=== PATIENT | female | born 2000 | race Caucasian/White ===

== ENCOUNTER 2018-11-01 11:10 | Emergency (ER) | payer BC ==
[~2018-11-01] VITALS: Ht 172.7 cm; Wt 59.0 kg
[2018-11-01] MEDS ORDERED: NKM (11:17)
[2018-11-01 11:20] VITALS: BP 100/65
--- NOTE | 2018-11-01 11:20 | NUR ---
ED Nurse Note: patient came in from home c/o sorethoat, headache and feeling "sick." x 3 days. reports pain 8/10 ambulatory, a/o x4 lives with her roommates. per patient, she is allergic to PCN reaction is rash and nausea
--- NOTE | 2018-11-01 12:24 | NUR ---
AMA: SEE AMA FORM.
--- NOTE | 2018-11-01 12:24 | NUR ---
ED Nurse Note: patient left department Dr. Corine CRUZ made aware.
[2018-11-01 17:40] VITALS: BP 100/65
--- NOTE | 2019-01-10 08:40 | Emergency Room Report ---
History of Present Illness General Chief Complaint: Sore Throat Source: Patient Present Illness HPI The patient states she has had sore throat, bodyaches and headache for the past 3 days. She states that her boyfriend has similar symptoms. She did get the influenza vaccine this season. She denies neck pain or stiffness. She denies blurry vision. She denies chest pain or shortness of breath. She has been fatigued. She has no other complaints. Allergies: Coded Allergies: PENICILLINS (Verified Allergy, Unknown, 11/01/18) Patient History Past Medical History: none, see triage record Social History: Reports: smoking; Denies: alcohol use, drug use Now: No Reviewed Nursing Documentation: PMH: Agreed; PSxH: Agreed Nursing Documentation-PMH Past Medical History: No Stated History Review of Systems All Other Systems: negative except mentioned in HPI Physical Exam Sp02 EP Interpretation: reviewed, normal General Appearance: no apparent distress, alert, GCS 15, non-toxic Head: normocephalic, atraumatic Eyes: bilateral eye normal inspection, bilateral eye PERRL ENT: hearing grossly normal, no angioedema, normal voice, uvula midline, moist mucus membranes, pharyngeal erythema Neck: full range of motion, supple/symm/no masses Respiratory: chest non-tender, lungs clear, normal breath sounds, no respiratory distress, no retraction, no accessory muscle use, speaking full sentences Cardiovascular #1: regular rate, rhythm, no edema Rectal: deferred Musculoskeletal: normal inspection, back normal, gait/station normal, normal range of motion Neurologic: alert, oriented x3, responsive, motor strength/tone normal, sensory intact, speech normal Psychiatric: judgement/insight normal, memory normal, mood/affect normal, no suicidal/homicidal ideation Skin: normal color, no rash, warm/dry, well hydrated Medical Decision Making Diagnostic Impression: Primary Impression: Sorethroat ER Course This patient has a clinical presentation consistent with pharyngitis. Physical exam is consistent with a viral etiology. Rapid influenza is negative. There is no evidence of peritonsillar abscess or deep neck abscess. There is no airway edema. Overall, this patient had a very benign examination. The patient only needs supportive care. The patient is instructed to get over-the- counter lozenges. I will also give the patient Motrin as a pain medication and anti-inflammatory. The patient left AGAINST MEDICAL ADVICE before I was able to come discuss management plans with her and the results of her influenza testing. The nurse stated she needed to leave for personal reasons. See EMR Disposition: AGAINST MEDICAL ADVICE Condition: Stable Referrals: NON PHYSICIAN (PCP) Sylvia Desai DO Jan 10, 2019 08:40
== END 2018-11-01 12:24 | disposition left against medical advice (07) ==
LOC: EMR 11:35
DX: J02.9 Acute pharyngitis, unspecified (principal)
CPT/HCPCS: 86710; 99282

== ENCOUNTER 2019-05-17 17:24 | Emergency (ER) | payer BC ==
[~2019-05-17] VITALS: Ht 172.7 cm; Wt 61.2 kg
[~2019-05-17 17:24] MED LIST: NKM
[2019-05-17] MEDS ORDERED: LORazepam Inj 2mg/ml 1ml IV ONE (17:30)
--- NOTE | 2019-05-17 17:30 | NUR ---
ED Nurse Note: Patient brought in by ambulance RA [id number] from [facility], patient c/o anxiety. per EMS patient abused heroin last week. patient is alert awake ambulatory upon arrival, able to follow commands, appears very anxious and jittery.
[2019-05-17] MEDS ORDERED: ZOFRAN ODT8 MG ORAL ×2 (17:35)
[2019-05-17] MEDS ORDERED: ZOFRAN4 MG ORAL (17:36)
--- NOTE | 2019-05-17 17:36 | Emergency Room Report ---
History of Present Illness General Chief Complaint: General Complaint Source: Patient, EMS Present Illness HPI 18-year-old female history of polysubstance abuse history of heroin abuse, last used heroin 2 days ago presents with abdominal cramps diarrhea, nausea, she feels like she is withdrawing, aggravating factors not using heroin, alleviating factors using heroin, severity is moderate, onset was prior to arrival, patient also reports that her friend recently from overdosing, she denies any chest pain, she does endorse abdominal cramps Allergies: Coded Allergies: PENICILLINS (Verified Allergy, Unknown, 11/01/18) Patient History Past Medical History: see triage record Social History: Reports: smoking, alcohol use, drug use - Heroin Reviewed Nursing Documentation: PMH: Agreed; PSxH: Agreed Review of Systems All Other Systems: negative except mentioned in HPI Physical Exam Vital Signs Date Time Temp Pulse Resp B/P (MAP) Pulse Ox O2 Delivery O2 Flow Rate FiO2 05/17/19 17:21 98.6 110 16 137/78 (97) 100 Room Air Sp02 EP Interpretation: reviewed, normal General Appearance: well appearing, no apparent distress, alert Head: normocephalic, atraumatic Eyes: bilateral eye PERRL, bilateral eye EOMI ENT: uvula midline, moist mucus membranes Neck: supple, thyroid normal, supple/symm/no masses Respiratory: lungs clear, no respiratory distress, no retraction, no accessory muscle use Cardiovascular #1: normal peripheral pulses, no edema, no gallop, no murmur, tachycardia Gastrointestinal: non tender, soft, no guarding, no rebound Musculoskeletal: normal inspection Neurologic: alert, oriented x3 Psychiatric: no suicidal/homicidal ideation, anxious Skin: no rash, warm/dry Medical Decision Making Diagnostic Impression: Primary Impression: Heroin withdrawal Additional Impression: Hypokalemia ER Course 18-year-old female presents with symptoms of heroin withdrawal Will provide patient with symptomatic care Evaluation 5:40 PM, patient was witnessed having a tonic-clonic seizure, quick resolution of symptoms, with no postictal state, no wetting of the bed, not sure if seizure versus acute syncope episode Patient found to be hypokalemic patient given 80 mg of potassium by mouth, 20 mEq by IV, will reassess BMP, patient is a symptomatically comfortably with boyfriend BMP improved Will disposition patient back to rehab Laboratory Tests Test 05/17/19 17:42 8/9/19 18:25 05/17/19 20:20 White Blood Count 13.8 K/UL (4.8-10.8) H Red Blood Count 4.50 M/UL (4.20-5.40) Hemoglobin 14.0 G/DL (12.0-16.0) Hematocrit 41.6 % (37.0-47.0) Mean Corpuscular Volume 92 FL (80-99) Mean Corpuscular Hemoglobin 31.0 PG (27.0-31.0) Mean Corpuscular Hemoglobin Concent 33.6 G/DL (32.0-36.0) Red Cell Distribution Width 11.2 % (11.6-14.8) L Platelet Count 290 K/UL (150-450) Mean Platelet Volume 6.4 FL (6.5-10.1) L Neutrophils (%) (Auto) 60.2 % (45.0-75.0) Lymphocytes (%) (Auto) 27.3 % (20.0-45.0) Monocytes (%) (Auto) 10.4 % (1.0-10.0) H Eosinophils (%) (Auto) 1.1 % (0.0-3.0) Basophils (%) (Auto) 1.1 % (0.0-2.0) Prothrombin Time 10.8 SEC (9.30-11.50) Prothrombin Time INR 1.0 (0.9-1.1) PTT 32 SEC (23-33) Sodium Level 140 MMOL/L (136-145) 141 MMOL/L (136-145) Potassium Level 2.8 MMOL/L (3.5-5.1) L 3.0 MMOL/L (3.5-5.1) L Chloride Level 100 MMOL/L (98-107) 105 MMOL/L (98-107) Carbon Dioxide Level 32 MMOL/L (21-32) 33 MMOL/L (21-32) H Anion Gap 8 mmol/L (5-15) 3 mmol/L (5-15) L Blood Urea Nitrogen 7 mg/dL (7-18) 5 mg/dL (7-18) L Creatinine 1.0 MG/DL (0.55-1.30) 0.8 MG/DL (0.55-1.30) Estimate Glomerular Filtration Rate > 60 mL/min (>60) > 60 mL/min (>60) Glucose Level 99 MG/DL (74-106) 98 MG/DL (74-106) Calcium Level 9.6 MG/DL (8.5-10.1) 8.5 MG/DL (8.5-10.1) Total Bilirubin 0.4 MG/DL (0.2-1.0) Aspartate Amino Transferase (AST) 23 U/L (15-37) Alanine Aminotransferase (ALT) 21 U/L (12-78) Alkaline Phosphatase 69 U/L (46-116) Total Protein 7.4 G/DL (6.4-8.2) Albumin 4.1 G/DL (3.4-5.0) Globulin 3.3 g/dL Albumin/Globulin Ratio 1.2 (1.0-2.7) Lipase 146 U/L (73-393) Human Chorionic Gonadotropin, Quant < 1 mIU/mL (1-6) L Urine Color Yellow Urine Appearance Clear Urine pH 7 (4.5-8.0) Urine Specific Ruth 1.010 (1.005-1.035) Urine Protein 1+ (NEGATIVE) H Urine Glucose (UA) Negative (NEGATIVE) Urine Ketones 2+ (NEGATIVE) H Urine Blood 1+ (NEGATIVE) H Urine Nitrite Negative (NEGATIVE) Urine Bilirubin Negative (NEGATIVE) Urine Urobilinogen Normal MG/DL (0.0-1.0) Urine Leukocyte Esterase Negative (NEGATIVE) Urine RBC 0-2 /HPF (0 - 2) Urine WBC 0-2 /HPF (0 - 2) Urine Squamous Epithelial Cells Moderate /LPF (NONE/OCC) H Urine Bacteria Few /HPF (NONE) Urine HCG, Qualitative Negative (NEGATIVE) Urine Opiates Screen Positive (NEGATIVE) H Urine Barbiturates Screen Negative (NEGATIVE) Phencyclidine (PCP) Screen Negative (NEGATIVE) Urine Amphetamines Screen Negative (NEGATIVE) Urine Benzodiazepines Screen Negative (NEGATIVE) Urine Cocaine Screen Negative (NEGATIVE) Urine Marijuana (THC) Screen Positive (NEGATIVE) H Rhythm Strip Diag. Results Rhythm Strip Time: 17:48 EP Interpretation: yes Rate: 99 Rhythm: NSR, no PVC's, no ectopy Last Vital Signs Date Time Temp Pulse Resp B/P (MAP) Pulse Ox O2 Delivery O2 Flow Rate FiO2 05/17/19 17:21 98.6 110 16 137/78 (97) 100 Room Air Disposition: HOME, SELF-CARE - rehab Condition: Stable Scripts Ondansetron (Zofran) 4 Mg Tablet 4 MG ORAL Q8H PRN for Nausea & Vomiting, #15 TAB 0 Refills Prov: Anatoliy Rees MD 05/17/19 Referrals: [facility] Patient Instructions: Opioid Withdrawal Additional Instructions: The patient was provided with discharge instructions, notified to follow-up with a primary care doctor and or specialist in the next 24-48 hours, and to return to the ED if they have worsening of their symptoms. Please note that this report is being documented using [employer] technology. This can lead to erroneous entry secondary to incorrect interpretation by the dictating instrument. Anatoliy Rees MD May 17, 2019 17:36
--- NOTE | 2019-05-17 17:40 | NUR ---
ED Nurse Note: patient had 1 episode of tonic clonic seizure that lasted about 45 seconds, when MELANIA Granados and RN by the bedside. patient provided oxygen, suction, seziure pads applied, patient's vitals stable. notified DR. Rees. -
[2019-05-17 17:58] VITALS: BP 109/78
[2019-05-17 17:59] LABS: BASOPHILS % (AUTO) 1.1 % (0.0-2.0); EOSINOPHILS % (AUTO) 1.1 % (0.0-3.0); HEMATOCRIT 41.6 % (37.0-47.0); LYMPHOCYTES % (AUTO) 27.3 % (20.0-45.0); MEAN CORPUSCULAR VOLUME 92 FL (80-99); MONOCYTES % (AUTO) 10.4 % (1.0-10.0); NEUTROPHILS % (AUTO) 60.2 % (45.0-75.0); PLATELET COUNT 290 K/UL (150-450); RED CELL DISTRIBUTION WIDTH 11.2 % (11.6-14.8); WHITE BLOOD COUNT 13.8 K/UL (4.8-10.8)
[2019-05-17 18:18] LABS: ANION GAP 8 mmol/L (5-15); BLOOD UREA NITROGEN 7 mg/dL (7-18); CALCIUM 9.6 MG/DL (8.5-10.1); CARBON DIOXIDE 32 MMOL/L (21-32); CHLORIDE 100 MMOL/L (98-107); POTASSIUM 2.8 MMOL/L (3.5-5.1); SODIUM 140 MMOL/L (136-145)
[2019-05-17 18:20] LABS: ALANINE AMINOTRANSFERASE 21 U/L (12-78); ALBUMIN 4.1 G/DL (3.4-5.0); ALBUMIN/GLOBULIN RATIO 1.2 (1.0-2.7); ALKALINE PHOSPHATASE 69 U/L (46-116); ASPARTATE AMINO TRANSFERASE 23 U/L (15-37); BILIRUBIN,TOTAL 0.4 MG/DL (0.2-1.0)
[2019-05-17] MEDS ORDERED: Potassium Chloride 20 MEQ in LR 1000ml 1,000 ML IV SCH (18:30)
[2019-05-17] MEDS ORDERED: Ammonia Inhalant 0.33mL 1 Amp INH ONE (18:30)
--- NOTE | 2019-05-17 18:50 | NUR ---
ED Nurse Note: called pharmacy and spoke with Evelyn to load pyxis with kdur. they're making potassium 20meq with LR. they will deliver it to ED
--- NOTE | 2019-05-17 19:00 | NUR ---
HAND-OFF: Report given to Griselda MOONEY. boyfriend by the bedside
[2019-05-17 19:44] LABS: APPEARANCE,URINE CLEAR; BILIRUBIN, URINE NEGATIVE (NEGATIVE); GLUCOSE, URINE (UA) NEGATIVE (NEGATIVE); KETONES,URINE 2+ (NEGATIVE); LEUKOCYTE ESTERASE ,URINE NEGATIVE (NEGATIVE); NITRITE,URINE NEGATIVE (NEGATIVE); PH,URINE 7 (4.5-8.0); PROTEIN,URINE 1+ (NEGATIVE); UROBILINOGEN,URINE NORMAL MG/DL (0.0-1.0)
[2019-05-17 19:48] LABS: COLOR,URINE YELLOW
[2019-05-17 20:38] LABS: ANION GAP 3 mmol/L (5-15); BLOOD UREA NITROGEN 5 mg/dL (7-18); CALCIUM 8.5 MG/DL (8.5-10.1); CARBON DIOXIDE 33 MMOL/L (21-32); CHLORIDE 105 MMOL/L (98-107); CREATININE 0.8 MG/DL (0.55-1.30); SODIUM 141 MMOL/L (136-145)
[2019-05-17] MEDS ORDERED: K-TAB10 MEQ PO (20:52)
[2019-05-17 21:20] VITALS: BP 109/78
--- NOTE | 2019-05-17 21:20 | NUR ---
ER DISCHARGE NOTE: Patient is cleared to be discharged per ERMD, pt is aox4, on room air, with stable vital signs. pt was given dc and prescription instructions, pt was able to verbalize understanding, pt id band and iv site removed without complications. pt is able to ambulate with steady gait. pt took all belongings.
== END 2019-05-17 21:20 | disposition home or self-care (01) ==
LOC: EDBD 17:24 → EMR 20:15
DX: F11.23 Opioid dependence with withdrawal (principal); E87.6 Hypokalemia; Z88.0 Allergy status to penicillin
CPT/HCPCS: 36415; 80048; 80053; 80307; 81003; 81025; 83690; 84702; 85025; 85610; 85730; 96361; 96365; 96366; 96375; 99284; J2405; J3480; J8499